=== PATIENT | female | born 1955 | race Caucasian/White ===

== ENCOUNTER 2017-07-12 06:55 | Inpatient (IN) | payer OTHER, MEDICAID ==
[2017-07-12] MEDS ORDERED: NITROGLYCERIN (SL) 0.4 MG TAB SL (08:00)
[2017-07-12 08:30] LABS: ADD MAN DIFF? NO
[2017-07-12 08:34] LABS: BASOPHILS % 0.2 % (0.0-2.0); EOSINOPHILS # 0.1 10^3/ul (0.0-0.5); EOSINOPHILS % 0.6 % (0.0-7.0); HEMATOCRIT 41.4 % (37.0-47.0); HEMOGLOBIN 13.9 g/dl (12.0-16.0); LYMPHOCYTES # 1.2 10^3/ul (0.8-2.9); LYMPHOCYTES % 12.2 % (15.0-51.0); MEAN CORPUSCULAR HEMOGLOBIN 28.1 pg (29.0-33.0); MEAN CORPUSCULAR HGB CONC 33.6 g/dl (32.0-37.0); MEAN CORPUSCULAR VOLUME 83.8 fl (82.0-101.0); MEAN PLATELET VOLUME 11.7 fl (7.4-10.4); MONOCYTE # 0.7 10^3/ul (0.3-0.9); MONOCYTES % 6.4 % (0.0-11.0); NEUTROPHIL # 8.1 10^3/ul (1.6-7.5); NEUTROPHILS % 80.3 % (39.0-77.0); PLATELET COUNT 217 10^3/UL (140-415); RED BLOOD COUNT 4.94 10^6/ul (4.20-5.40); RED CELL DISTRIBUTION WIDTH 14.2 % (11.5-14.5)
[2017-07-12 08:34] LABS: WHITE BLOOD COUNT 10.1 10^3/ul (4.8-10.8)
[2017-07-12] MEDS: ASPIRIN 81 MG TAB PO (08:55)
[2017-07-12 08:56] LABS: ANION GAP 18 (8-16); BLOOD UREA NITROGEN 16 mg/dl (7-20); CALCIUM 9.8 mg/dl (8.4-10.2); CARBON DIOXIDE 25 mmol/L (21-31); CHLORIDE 108 mmol/L (97-110); CREATININE 0.63 mg/dl (0.44-1.00); GLUCOSE 130 mg/dl (70-220); POTASSIUM 3.7 mmol/L (3.5-5.1); SODIUM 147 mmol/L (135-144)
[2017-07-12] MEDS: NITROGLYCERIN 2% 1 GM OINT PKT TD (08:56)
[2017-07-12 09:29] LABS: TROPONIN-I 0.208 ng/ml (0.00-0.12)
[2017-07-12] MEDS ORDERED: ONDANSETRON 4 MG INJ IV (10:00)
[2017-07-12] MEDS ORDERED: ACETAMINOPHEN 325 MG TAB PO (10:00)
[2017-07-12] MEDS ORDERED: HYDROCODONE/APAP (5/325) TAB PO (11:00)
[2017-07-12] MEDS ORDERED: hydrALAzine 20 MG INJ IV (11:00)
[2017-07-12] MEDS ORDERED: NACL 0.9% 3 ML SYG IV (11:00)
[2017-07-12 11:25] LABS: B-TYPE NATRIURETIC PEPTIDE 100 PG/ML (0-125)
[2017-07-12 13:56] LABS: HEMOGLOBIN A1C 5.6 % (0-5.9)
[2017-07-12] MEDS ORDERED: METOPROLOL 5 MG INJ IV (14:00)
[2017-07-12] MEDS: ACETAMINOPHEN 325 MG TAB PO ×2 (14:30→20:41)
[2017-07-12] MEDS: METOPROLOL 50 MG TAB PO ×2 (14:31→20:41)
[2017-07-12] MEDS: LISINOPRIL 20 MG TAB PO (14:31)
[2017-07-12] MEDS: ISOSORBIDE MONONITRATE(SR)60 MG TAB PO (14:46)
[2017-07-12 14:54] LABS: CREATINE KINASE 293 IU/L (23-200)
[2017-07-12 15:07] LABS: CK INDEX 4.3
[2017-07-12 15:29] LABS: FREE T4 (FREE THYROXINE) 1.06 ng/dl (0.78-2.44)
[2017-07-12] MEDS ORDERED: HEPARIN 1000 UNITS/ML 10 ML INJ IV (17:00)
[2017-07-12 18:21] LABS: INR 0.98; PROTIME 13.1 Sec (11.9-14.9)
[2017-07-12 18:22] LABS: PARTIAL THROMBOPLASTIN TIME 27.2 Sec (25.0-35.0)
[2017-07-12] MEDS: HEPARIN 1000 UNITS/ML 10 ML INJ IV (19:19)
[2017-07-12] MEDS: HEPARIN 25000 UNITS/250 ML 250 ML IV (19:20)
[2017-07-12] MEDS: ATORVASTATIN 20 MG TAB PO (20:41)
[2017-07-12] MEDS ORDERED: LISINOPRIL 20 MG TAB PO (21:00)
[2017-07-13] MEDS: morphine 2 MG INJ IV (00:44)
[2017-07-13] MEDS: ONDANSETRON 4 MG INJ IV (00:44)
[2017-07-13 01:04] LABS: INR 0.99; PROTIME 13.2 Sec (11.9-14.9)
[2017-07-13 01:05] LABS: PARTIAL THROMBOPLASTIN TIME 60.1 Sec (25.0-35.0)
[2017-07-13 01:06] LABS: CREATINE KINASE 185 IU/L (23-200)
[2017-07-13 01:16] LABS: CK INDEX 3.1
[2017-07-13 07:40] LABS: ADD MAN DIFF? NO
[2017-07-13 07:45] LABS: BASOPHILS % 0.2 % (0.0-2.0); EOSINOPHILS # 0.1 10^3/ul (0.0-0.5); EOSINOPHILS % 0.7 % (0.0-7.0); HEMATOCRIT 39.2 % (37.0-47.0); HEMOGLOBIN 12.9 g/dl (12.0-16.0); LYMPHOCYTES # 2.5 10^3/ul (0.8-2.9); LYMPHOCYTES % 21.1 % (15.0-51.0); MEAN CORPUSCULAR HEMOGLOBIN 27.9 pg (29.0-33.0); MEAN CORPUSCULAR HGB CONC 32.9 g/dl (32.0-37.0); MEAN CORPUSCULAR VOLUME 84.7 fl (82.0-101.0); MEAN PLATELET VOLUME 11.2 fl (7.4-10.4); MONOCYTE # 0.8 10^3/ul (0.3-0.9); MONOCYTES % 6.8 % (0.0-11.0); NEUTROPHIL # 8.4 10^3/ul (1.6-7.5); NEUTROPHILS % 70.9 % (39.0-77.0); PLATELET COUNT 204 10^3/UL (140-415); RED BLOOD COUNT 4.63 10^6/ul (4.20-5.40); RED CELL DISTRIBUTION WIDTH 13.7 % (11.5-14.5)
[2017-07-13 07:45] LABS: WHITE BLOOD COUNT 11.8 10^3/ul (4.8-10.8)
[2017-07-13 08:05] LABS: CHOL/HDL RATIO 2.8 RATIO; CHOLESTEROL 149 mg/dl (100-200); HDL CHOLESTEROL 53 mg/dl (35-98); LDL CHOLESTEROL,CALCULATED 60 mg/dl; TRIGLYCERIDES 178 mg/dl (0-149)
[2017-07-13 08:05] LABS: PHOSPHORUS 3.9 mg/dl (2.5-4.9)
[2017-07-13 08:06] LABS: ALANINE AMINOTRANSFERASE 27 IU/L (13-69); ALBUMIN/GLOBULIN RATIO 1.17; ALKALINE PHOSPHATASE 117 IU/L (42-121); ANION GAP 17 (8-16); ASPARTATE AMINO TRANSFERASE 34 IU/L (15-46); BILIRUBIN,INDIRECT 0.6 mg/dl (0-1.1); BILIRUBIN,TOTAL 0.6 mg/dl (0.2-1.3); BLOOD UREA NITROGEN 18 mg/dl (7-20); CALCIUM 9.6 mg/dl (8.4-10.2); CARBON DIOXIDE 25 mmol/L (21-31); CHLORIDE 108 mmol/L (97-110); CREATININE 0.65 mg/dl (0.44-1.00); GLUCOSE 126 mg/dl (70-220); INR 0.97; POTASSIUM 3.8 mmol/L (3.5-5.1); SODIUM 146 mmol/L (135-144); TOTAL PROTEIN 7.4 g/dl (6.1-8.1)
[2017-07-13 08:07] LABS: PARTIAL THROMBOPLASTIN TIME 53.1 Sec (25.0-35.0)
[2017-07-13] MEDS ORDERED: HEPARIN 1000 UNITS/ML 10 ML INJ (08:37)
[2017-07-13] MEDS ORDERED: ENOXAPARIN 40 MG/0.4 ML SYG SC (09:00)
[2017-07-13] MEDS ORDERED: ASPIRIN (EC) 81 MG TAB PO (09:00)
[2017-07-13] MEDS ORDERED: METOPROLOL (XL) 50 MG TAB PO (09:00)
[2017-07-13] MEDS: REGADENOSON 0.4 MG/5 ML SYG (10:49)
[2017-07-13] MEDS: ASPIRIN 81 MG TAB PO (13:08)
[2017-07-13] MEDS: CLOPIDOGREL 75 MG TAB PO (13:08)
[2017-07-13] MEDS: ISOSORBIDE MONONITRATE(SR)60 MG TAB PO (13:08)
[2017-07-13] MEDS: LISINOPRIL 20 MG TAB PO (13:09)
[2017-07-13] MEDS: NIFEdipine (XL) 60 MG TAB PO (13:09)
[2017-07-13] MEDS: METOPROLOL 50 MG TAB PO ×2 (13:09→20:52)
[2017-07-13 15:30] LABS: PARTIAL THROMBOPLASTIN TIME 58.6 Sec (25.0-35.0)
[2017-07-13] MEDS ORDERED: morphine LIQ (10 MG/5 ML) CUP PO (15:30)
[2017-07-13 15:35] LABS: TROPONIN-I 0.743 ng/ml (0.00-0.12)
[2017-07-13] MEDS: ACETAMINOPHEN 325 MG TAB PO (16:23)
[2017-07-13] MEDS: HEPARIN 25000 UNITS/250 ML 250 ML IV (18:38)
[2017-07-13 20:50] LABS: PARTIAL THROMBOPLASTIN TIME 63.7 Sec (25.0-35.0)
[2017-07-13] MEDS: ATORVASTATIN 20 MG TAB PO (20:52)
[2017-07-13 21:12] LABS: TROPONIN-I 0.824 ng/ml (0.00-0.12)
[2017-07-14 07:51] LABS: PARTIAL THROMBOPLASTIN TIME 70.2 Sec (25.0-35.0)
[2017-07-14] MEDS: HEPARIN 25000 UNITS/250 ML 250 ML IV ×2 (08:01→16:26)
[2017-07-14] MEDS: NIFEdipine (XL) 60 MG TAB PO (08:22)
[2017-07-14] MEDS: CLOPIDOGREL 75 MG TAB PO (08:22)
[2017-07-14] MEDS: ASPIRIN 81 MG TAB PO (08:22)
[2017-07-14] MEDS: METOPROLOL 50 MG TAB PO ×2 (08:23→20:04)
[2017-07-14] MEDS: ISOSORBIDE MONONITRATE(SR)60 MG TAB PO (08:23)
[2017-07-14] MEDS: LISINOPRIL 20 MG TAB PO (08:23)
[2017-07-14] MEDS: ACETAMINOPHEN 325 MG TAB PO (08:33)
[2017-07-14] MEDS: NITROGLYCERIN (SL) 0.4 MG TAB SL ×3 (18:50→19:27)
[2017-07-14] MEDS: ATORVASTATIN 20 MG TAB PO (20:04)
[2017-07-14] MEDS: morphine 2 MG INJ IV (20:04)
[2017-07-14] MEDS: MAGNESIUM HYDROXIDE 30ML CUP PO (20:11)
[2017-07-14 21:34] LABS: TROPONIN-I 0.489 ng/ml (0.00-0.12)
[2017-07-14 23:48] LABS: PARTIAL THROMBOPLASTIN TIME 60.4 Sec (25.0-35.0)
[2017-07-15] MEDS: NITROGLYCERIN (SL) 0.4 MG TAB SL (00:18)
[2017-07-15] MEDS: NIFEdipine (XL) 60 MG TAB PO (08:25)
[2017-07-15] MEDS: ISOSORBIDE MONONITRATE(SR)60 MG TAB PO (08:25)
[2017-07-15] MEDS: ASPIRIN 81 MG TAB PO (08:25)
[2017-07-15] MEDS: CLOPIDOGREL 75 MG TAB PO (08:25)
[2017-07-15] MEDS: LISINOPRIL 20 MG TAB PO (08:26)
[2017-07-15] MEDS: METOPROLOL 50 MG TAB PO ×2 (08:26→20:26)
[2017-07-15] MEDS ORDERED: HEPARIN 1000 UNITS/ML 10 ML INJ (11:16)
[2017-07-15] MEDS ORDERED: LIDOCAINE 1% (MDV) 20 ML INJ (11:16)
[2017-07-15] MEDS ORDERED: MIDAZOLAM 1 MG/ML 2 ML INJ (11:16)
[2017-07-15] MEDS ORDERED: IODIXANOL LOCM 100 ML BTL (11:16)
[2017-07-15] MEDS ORDERED: NITROGLYCERIN (IC) 100 MCG/ML INJ (11:17)
[2017-07-15] MEDS ORDERED: FENTAnyl 50 MCG/ML VIAL (11:17)
[2017-07-15] MEDS ORDERED: VERAPAMIL 5 MG INJ (11:17)
[2017-07-15] MEDS ORDERED: AL HYDROX/MG HYDROX/SIMETH 30 ML CUP PO (12:30)
[2017-07-15] MEDS ORDERED: ONDANSETRON 4 MG INJ IV (12:30)
[2017-07-15] MEDS ORDERED: morphine 2 MG INJ IV (12:30)
[2017-07-15] MEDS: ACETAMINOPHEN 325 MG TAB PO (13:13)
[2017-07-15] MEDS: SOD CHLORIDE 0.9% 1,000 ML IV (15:01)
[2017-07-15] MEDS: MAGNESIUM HYDROXIDE 30ML CUP PO (20:25)
[2017-07-15] MEDS: ATORVASTATIN 20 MG TAB PO (20:25)
[2017-07-16] MEDS: LACTULOSE 30ML CUP PO (04:20)
[2017-07-16] MEDS: ASPIRIN 81 MG TAB PO (08:39)
[2017-07-16] MEDS: CLOPIDOGREL 75 MG TAB PO (08:39)
[2017-07-16] MEDS: SENNA TAB PO (08:40)
[2017-07-16] MEDS: METOPROLOL 50 MG TAB PO ×2 (08:44→13:46)
[2017-07-16] MEDS: ISOSORBIDE MONONITRATE(SR)60 MG TAB PO ×2 (08:44→13:46)
[2017-07-16] MEDS: LISINOPRIL 20 MG TAB PO ×2 (08:45→13:47)
[2017-07-16] MEDS: NIFEdipine (XL) 60 MG TAB PO ×2 (08:45→13:47)
[2017-07-16 10:56] LABS: ADD MAN DIFF? NO
[2017-07-16 11:13] LABS: WHITE BLOOD COUNT 10.9 10^3/ul (4.8-10.8)
[2017-07-16 11:13] LABS: BASOPHILS % 0.2 % (0.0-2.0); EOSINOPHILS # 0.1 10^3/ul (0.0-0.5); EOSINOPHILS % 0.9 % (0.0-7.0); HEMATOCRIT 40.6 % (37.0-47.0); HEMOGLOBIN 13.2 g/dl (12.0-16.0); LYMPHOCYTES # 2.3 10^3/ul (0.8-2.9); MEAN CORPUSCULAR HEMOGLOBIN 28.3 pg (29.0-33.0); MEAN CORPUSCULAR HGB CONC 32.5 g/dl (32.0-37.0); MEAN CORPUSCULAR VOLUME 86.9 fl (82.0-101.0); MEAN PLATELET VOLUME 10.8 fl (7.4-10.4); MONOCYTE # 0.8 10^3/ul (0.3-0.9); MONOCYTES % 7.3 % (0.0-11.0); NEUTROPHIL # 7.6 10^3/ul (1.6-7.5); NEUTROPHILS % 70.3 % (39.0-77.0); PLATELET COUNT 222 10^3/UL (140-415); RED BLOOD COUNT 4.67 10^6/ul (4.20-5.40); RED CELL DISTRIBUTION WIDTH 14.2 % (11.5-14.5)
[2017-07-16 11:22] LABS: ANION GAP 16 (8-16); BLOOD UREA NITROGEN 16 mg/dl (7-20); CALCIUM 9.8 mg/dl (8.4-10.2); CARBON DIOXIDE 26 mmol/L (21-31); CHLORIDE 108 mmol/L (97-110); CREATININE 0.74 mg/dl (0.44-1.00); GLUCOSE 114 mg/dl (70-220); SODIUM 146 mmol/L (135-144)
== END 2017-07-16 14:25 | disposition home or self-care (01) | DRG 281 ==
LOC: MS4 07-13 01:03 → E/R 06:55 → MS3 09:43
PROC: 4A023N7 Measurement of Cardiac Sampling and Pressure, Left Heart, Percutaneous Approach (ICD-10-PCS; principal; 2017-07-15 11:12)
PROC: B211YZZ Fluoroscopy of Multiple Coronary Arteries using Other Contrast (ICD-10-PCS; 2017-07-15 11:12)
PROC: B215YZZ Fluoroscopy of Left Heart using Other Contrast (ICD-10-PCS; 2017-07-15 11:12)
DX: I21.4 Non-ST elevation (NSTEMI) myocardial infarction (principal); I42.9 Cardiomyopathy, unspecified; Z68.41 Body mass index [BMI] 40.0-44.9, adult; I10 Essential (primary) hypertension; E78.5 Hyperlipidemia, unspecified; E66.9 Obesity, unspecified; I16.0 Hypertensive urgency; I25.10 Atherosclerotic heart disease of native coronary artery without angina pectoris; I24.9 Acute ischemic heart disease, unspecified; Z79.02 Long term (current) use of antithrombotics/antiplatelets; Z79.82 Long term (current) use of aspirin
CPT/HCPCS: 36415; 71045; 78451; 80048; 80053; 80061; 82550; 82553; 83036; 83735; 83880; 84100; 84439; 84443; 84484; 85025; 85610; 85730; 93005; 93306; 93458; 99291-25

== ENCOUNTER 2018-03-15 20:39 | Emergency (ER) | payer OTHER ==
[2018-03-15 21:41] LABS: ADD MAN DIFF? NO
[2018-03-15 21:46] LABS: BASOPHILS % 0.3 % (0.0-2.0); EOSINOPHILS # 0.1 10^3/ul (0.0-0.5); EOSINOPHILS % 0.9 % (0.0-7.0); HEMATOCRIT 40.6 % (37.0-47.0); HEMOGLOBIN 13.7 g/dl (12.0-16.0); LYMPHOCYTES # 2.5 10^3/ul (0.8-2.9); LYMPHOCYTES % 27.4 % (15.0-51.0); MEAN CORPUSCULAR HEMOGLOBIN 28.2 pg (29.0-33.0); MEAN CORPUSCULAR HGB CONC 33.7 g/dl (32.0-37.0); MEAN CORPUSCULAR VOLUME 83.5 fl (82.0-101.0); MEAN PLATELET VOLUME 11.2 fl (7.4-10.4); MONOCYTE # 0.7 10^3/ul (0.3-0.9); MONOCYTES % 7.7 % (0.0-11.0); NEUTROPHIL # 5.9 10^3/ul (1.6-7.5); NEUTROPHILS % 63.4 % (39.0-77.0); PLATELET COUNT 212 10^3/UL (140-415); RED BLOOD COUNT 4.86 10^6/ul (4.20-5.40); RED CELL DISTRIBUTION WIDTH 13.3 % (11.5-14.5)
[2018-03-15 21:46] LABS: WHITE BLOOD COUNT 9.2 10^3/ul (4.8-10.8)
[2018-03-15 22:53] LABS: ALANINE AMINOTRANSFERASE 18 IU/L (13-69); ALBUMIN 4.4 g/dl (3.3-4.9); ALBUMIN/GLOBULIN RATIO 1.51; ALKALINE PHOSPHATASE 111 IU/L (42-121); ANION GAP 12 (5-13); ASPARTATE AMINO TRANSFERASE 25 IU/L (15-46); BILIRUBIN,INDIRECT 0.4 mg/dl (0-1.1); BILIRUBIN,TOTAL 0.4 mg/dl (0.2-1.3); BLOOD UREA NITROGEN 19 mg/dl (7-20); CALCIUM 10.2 mg/dl (8.4-10.2); CARBON DIOXIDE 24 mmol/L (21-31); CHLORIDE 106 mmol/L (97-110); Estimated GFR > 60 mL/min (>60); GLUCOSE 160 mg/dl (70-220); POTASSIUM 3.1 mmol/L (3.5-5.1); SODIUM 142 mmol/L (135-144); TOTAL PROTEIN 7.3 g/dl (6.1-8.1)
[2018-03-15 23:04] LABS: B-TYPE NATRIURETIC PEPTIDE 121 PG/ML (0-125); TROPONIN-I < 0.012 ng/ml (0.000-0.120)
== END 2018-03-16 00:40 | disposition home or self-care (01) ==
LOC: E/R 03-16 00:40
DX: R00.2 Palpitations (principal); I10 Essential (primary) hypertension; I25.10 Atherosclerotic heart disease of native coronary artery without angina pectoris; Z79.82 Long term (current) use of aspirin; Z79.01 Long term (current) use of anticoagulants
CPT/HCPCS: 36415; 71045; 80053; 83880; 84484; 85025; 93005; 99285-25